=== PATIENT | female | born 1940 | race Caucasian/White ===

== ENCOUNTER → 2016-07-11 | Outpatient (CLI) | payer MEDICARE ==
[~2016-07-11] MED LIST: ASPI81 PO; BUSP10TA PO; CROM5.2S; HYDR-3533 PO; LEVO75TA3 PO; LISI-360 PO; LORA-392 PO; PAXI30TA7 PO; PRED50TA PO; SIMV10TA PO
[2016-07-11 11:59] LABS: ANION GAP 7 MEQ/L (5-15); AST (GOT) 16 U/L (15-37); BICARBONATE 26.7 MEQ/L (21.0-32.0); BLOOD UREA NITROGEN 25 MG/DL (7-18); CHLORIDE 106 MEQ/L (98-107); GLOMERULAR FILTRATION RATE 67 ML/MIN (>89); GLUCOSE,FASTING 92 MG/DL (74-99); POTASSIUM 4.4 MEQ/L (3.5-5.1); SODIUM (NA) 140 MEQ/L (136-145)
[2016-07-11 12:07] LABS: ALKALINE PHOSPHATASE 47 U/L (45-117); ALT (GPT) 32 U/L (10-53); FREE T4 1.07 NG/DL (0.76-1.46); HDL CHOLESTEROL 57.9 MG/DL (40.0-60.0); LDL CHOLESTEROL 106 MG/DL (0-99); TOTAL BILIRUBIN ADULT 0.5 MG/DL (0.2-1.0)
== END ==
LOC: CLAB 11:07
PROVIDERS: ATTEND Family Medicine
DX: I10 Essential (primary) hypertension (principal); E03.9 Hypothyroidism, unspecified; E78.5 Hyperlipidemia, unspecified
CPT/HCPCS: 36415; 80053; 80061; 84439; 84443

== ENCOUNTER → 2016-11-24 | Outpatient (CLI) | payer MEDICARE ==
[2016-11-24 09:26] LABS: HEMATOCRIT 42.2 % (35.0-46.0); MEAN CELL VOLUME 90.1 FL (80.0-100.0); MEAN CORPUSCULAR HEMOGLOBIN 30.3 PG (27.0-34.0); MEAN CORPUSCULAR HGB CONC 33.6 % (32.0-36.0); PLATELET COUNT 238 TH/MM3 (150-450); RED BLOOD COUNT 4.68 MIL/MM3 (4.00-5.30); RED CELL DISTRIBUTION WIDTH 13.8 % (11.6-17.2); REVIEW FLAG FINAL
[2016-11-24 09:57] LABS: ANION GAP 8 MEQ/L (5-15); AST (GOT) 16 U/L (15-37); BICARBONATE 23.1 MEQ/L (21.0-32.0); BLOOD UREA NITROGEN 21 MG/DL (7-18); CHLORIDE 106 MEQ/L (98-107); GLOMERULAR FILTRATION RATE 64 ML/MIN (>89); GLUCOSE,FASTING 106 MG/DL (74-99); POTASSIUM 4.3 MEQ/L (3.5-5.1); SODIUM (NA) 137 MEQ/L (136-145)
[2016-11-24 09:58] LABS: ALT (GPT) 31 U/L (10-53)
[2016-11-24 10:07] LABS: ALKALINE PHOSPHATASE 58 U/L (45-117); HDL CHOLESTEROL 59.1 MG/DL (40.0-60.0); LDL CHOLESTEROL 98 MG/DL (0-99); TOTAL BILIRUBIN ADULT 0.4 MG/DL (0.2-1.0)
== END ==
LOC: CLAB 08:54
PROVIDERS: ATTEND Family Medicine
DX: M81.0 Age-related osteoporosis without current pathological fracture (principal); I10 Essential (primary) hypertension; E78.5 Hyperlipidemia, unspecified; E03.9 Hypothyroidism, unspecified; F32.89 Other specified depressive episodes
CPT/HCPCS: 36415; 80053; 80061; 84443; 85027

== ENCOUNTER → 2016-11-27 | Outpatient (CLI) | payer MEDICARE | LOC: CLAB 13:03 | PROVIDERS: ATTEND Internal Medicine Gastroenterology | DX: R10.9 Unspecified abdominal pain (principal) | CPT/HCPCS: 36415; 82565; 84520 ==

== ENCOUNTER → 2017-03-29 | Outpatient (CLI) | payer MEDICARE ==
[2017-03-29 12:07] LABS: HEMATOCRIT 42.8 % (35.0-46.0); HEMOGLOBIN 14.2 GM/DL (11.6-15.3); MEAN CELL VOLUME 89.9 FL (80.0-100.0); MEAN CORPUSCULAR HEMOGLOBIN 29.9 PG (27.0-34.0); MEAN CORPUSCULAR HGB CONC 33.3 % (32.0-36.0); MEAN PLATELET VOLUME 9.4 FL (7.0-11.0); PLATELET COUNT 224 TH/MM3 (150-450); RED BLOOD COUNT 4.76 MIL/MM3 (4.00-5.30); RED CELL DISTRIBUTION WIDTH 13.8 % (11.6-17.2); WHITE BLOOD COUNT 5.3 TH/MM3 (4.0-11.0)
[2017-03-29 12:23] LABS: ALT (GPT) 30 U/L (10-53); AST (GOT) 19 U/L (15-37); BICARBONATE 27.6 MEQ/L (21.0-32.0); BLOOD UREA NITROGEN 19 MG/DL (7-18); CALCIUM 8.7 MG/DL (8.5-10.1); CHLORIDE 103 MEQ/L (98-107); CHOLESTEROL 199 MG/DL (120-200); CREATININE 0.75 MG/DL (0.50-1.00); GLOMERULAR FILTRATION RATE 75 ML/MIN (>89); GLUCOSE,FASTING 98 MG/DL (74-99); SODIUM (NA) 139 MEQ/L (136-145)
[2017-03-29 12:31] LABS: ALKALINE PHOSPHATASE 58 U/L (45-117); CHOLESTEROL/ HDL RATIO 3.49 RATIO; FREE T4 1.17 NG/DL (0.76-1.46); HDL CHOLESTEROL 56.9 MG/DL (40.0-60.0); LDL CHOLESTEROL 108 MG/DL (0-99); TOTAL BILIRUBIN ADULT 0.3 MG/DL (0.2-1.0); TOTAL PROTEIN 7.2 GM/DL (6.4-8.2); TRIGLYCERIDES 170 MG/DL (42-150)
== END ==
LOC: CLAB 11:35
PROVIDERS: ATTEND Family Medicine
DX: M81.0 Age-related osteoporosis without current pathological fracture (principal); I10 Essential (primary) hypertension; E78.5 Hyperlipidemia, unspecified; E03.9 Hypothyroidism, unspecified; F32.89 Other specified depressive episodes; Z68.28 Body mass index [BMI] 28.0-28.9, adult
CPT/HCPCS: 36415; 80053; 80061; 84439; 84443; 85027

== ENCOUNTER → 2017-06-26 | Outpatient (CLI) | payer MEDICARE ==
[2017-06-26 11:08] LABS: HEMATOCRIT 43.3 % (35.0-46.0); HEMOGLOBIN 14.5 GM/DL (11.6-15.3); MEAN CELL VOLUME 89.1 FL (80.0-100.0); MEAN CORPUSCULAR HEMOGLOBIN 29.9 PG (27.0-34.0); MEAN CORPUSCULAR HGB CONC 33.5 % (32.0-36.0); MEAN PLATELET VOLUME 9.2 FL (7.0-11.0); PLATELET COUNT 248 TH/MM3 (150-450); RED BLOOD COUNT 4.86 MIL/MM3 (4.00-5.30); RED CELL DISTRIBUTION WIDTH 13.9 % (11.6-17.2); WHITE BLOOD COUNT 5.6 TH/MM3 (4.0-11.0)
[2017-06-26 11:31] LABS: ALBUMIN 3.9 GM/DL (3.4-5.0); ALT (GPT) 36 U/L (10-53); AST (GOT) 20 U/L (15-37); BICARBONATE 27.3 MEQ/L (21.0-32.0); BLOOD UREA NITROGEN 19 MG/DL (7-18); CALCIUM 8.5 MG/DL (8.5-10.1); CHLORIDE 105 MEQ/L (98-107); CHOLESTEROL 267 MG/DL (120-200); CREATININE 0.84 MG/DL (0.50-1.00); GLOMERULAR FILTRATION RATE 66 ML/MIN (>89); GLUCOSE,FASTING 98 MG/DL (74-99); SODIUM (NA) 140 MEQ/L (136-145)
[2017-06-26 11:41] LABS: ALKALINE PHOSPHATASE 55 U/L (45-117); CHOLESTEROL/ HDL RATIO 4.94 RATIO; LDL CHOLESTEROL 178 MG/DL (0-99); TOTAL BILIRUBIN ADULT 0.4 MG/DL (0.2-1.0); TOTAL PROTEIN 7.4 GM/DL (6.4-8.2); TRIGLYCERIDES 175 MG/DL (42-150)
== END ==
LOC: CLAB 10:39
PROVIDERS: ATTEND Family Medicine
DX: M81.0 Age-related osteoporosis without current pathological fracture (principal); I10 Essential (primary) hypertension; E78.5 Hyperlipidemia, unspecified; E03.9 Hypothyroidism, unspecified; F32.89 Other specified depressive episodes; Z68.28 Body mass index [BMI] 28.0-28.9, adult
CPT/HCPCS: 36415; 80053; 80061; 84443; 85027